=== PATIENT | female | born 1980 | race Caucasian/White ===

== ENCOUNTER 2016-04-16 07:12 | Emergency (ER) | payer BC, OTHER ==
[~2016-04-16] VITALS: Ht 160 cm; Wt 52.2 kg
[~2016-04-16 07:12] MED LIST: IBUPROFEN 200200 M1 PO; NORCO 5-325 TA1 EACH PO; NORFLEX100 MG PO; ORTHO TRI-CYCL1 EAC1; PREDNISONE 10 M10 MG PO; TRAMADOL 50 MG50 MG PO
[2016-04-16 07:36] LABS: HEMATOCRIT 42.6 % (37.0-47.0); HEMOGLOBIN 14.6 gm/dL (12.0-15.0); MCH 29.2 pg (26.0-34.0); MCHC 34.2 % (28.0-37.0); MCV 85.4 fL (80.0-100.0); PLATELET COUNT 222 thou/uL (150-400); RBC 4.99 mil/uL (4.20-5.00); RDW 13.3 % (10.5-14.5); WBC 6.4 thou/uL (4.0-11.0)
[2016-04-16 07:38] LABS: MANUAL DIFF YES
[2016-04-16 07:45] LABS: CALCIUM 8.9 mg/dL (8.5-10.1); CREATININE 0.7 mg/dL (0.6-1.3); POTASSIUM 3.6 mmol/L (3.5-5.1)
[2016-04-16 07:58] LABS: ABSOLUTE NEUTROPHILS 3.1 thou/uL (1.4-8.2); TOTAL CELL COUNT 100
[2016-04-16 08:02] LABS: DIRECT BILIRUBIN 0.2 mg/dL (<0.1-0.3); TOTAL BILIRUBIN 0.6 mg/dL (<0.1-1.0); TOTAL PROTEIN 7.2 g/dL (6.4-8.2)
[2016-04-16] MEDS ORDERED: PHENERGAN 25 MG25 M1 PO (08:19)
[2016-04-16] MEDS ORDERED: PROMS25 WY RECTAL (08:19)
[2016-04-16] MEDS ORDERED: ZOFRAN ODT4 MG PO (08:19)
[2016-04-16 08:47] VITALS: BP 118/76
== END 2016-04-16 08:47 | disposition home or self-care (01) ==
LOC: ER 07:12
PROVIDERS: Emergency Medicine
DX: R10.13 Epigastric pain (principal); R11.2 Nausea with vomiting, unspecified; R19.7 Diarrhea, unspecified; F17.210 Nicotine dependence, cigarettes, uncomplicated